=== PATIENT | female | born 1990 | race Two or more races ===

== ENCOUNTER 2024-07-18 13:51 | Outpatient (CLI) | payer MEDICAID, SELFPAY ==
[2024-07-18 13:56] VITALS: BP 114/58; PULSE 96
[2024-07-18 13:57] VITALS: BP 114/58; PULSE 96; RESP 18; RESP 99; TEMP 36.7; BMI 42.7
--- NOTE | 2024-07-18 14:33 | XR_ITS ---
Examination: Biophysical profile, ultrasound Date and time of exam: July 18, 2023 1454 hours INDICATIONS: Diagnosis small for gestational age Technique: Multiple transabdominal sonographic images of the pelvis abdomen obtained. Attention is directed to the breathing movement, gross body movement, amniotic fluid volume and tone. Findings: Amniotic fluid index 12.8 cm Total biophysical profile is 8 of 8. breathing movement is 2. Gross body movement is 2. tone is 2. Qualitative amniotic fluid volume is 2 Impression: Biophysical profile is 8 of 8.
== END 2024-07-18 15:45 | disposition home or self-care (01) ==
LOC: S4S1 13:52 → S4SX 13:52
PROVIDERS: Referring Provider Student in an Organized Health Care Education/Training Program; Visit Provider Student in an Organized Health Care Education/Training Program
DX: O36.5930 Maternal care for other known or suspected poor fetal growth, third trimester, not applicable or unspecified (principal); Z3A.36 36 weeks gestation of pregnancy
CPT/HCPCS: 59025; 76819

== ENCOUNTER 2024-07-21 14:52 | Outpatient (RCR) | payer MEDICAID, SELFPAY ==
--- NOTE | 2024-07-21 15:07 | XR_ITS ---
Examination: Biophysical profile, ultrasound Date and time of exam: July 21, 2024 5011 hours INDICATIONS: Diagnosis poor growth, diagnosis small for gestational age Technique: Multiple transabdominal sonographic images of the pelvis abdomen obtained. Attention is directed to the breathing movement, gross body movement, amniotic fluid volume and tone. Findings: Amniotic fluid index 14.8 cm Total biophysical profile is 8 of 8. breathing movement is 2. Gross body movement is 2. tone is 2. Qualitative amniotic fluid volume is 2 Impression: Biophysical profile is 8 of 8.
[2024-07-21 16:15] VITALS: BP 132/75; PULSE 100; RESP 16; TEMP 37
== END 2024-07-21 23:59 | disposition home or self-care (01) ==
LOC: S4S1 14:52
PROVIDERS: PCP Family Medicine; Referring Provider Student in an Organized Health Care Education/Training Program; Visit Provider Student in an Organized Health Care Education/Training Program
DX: O36.5930 Maternal care for other known or suspected poor fetal growth, third trimester, not applicable or unspecified (principal); Z3A.36 36 weeks gestation of pregnancy
CPT/HCPCS: 59025; 76819

== ENCOUNTER 2024-07-25 10:45 | Inpatient (IN) | payer MEDICAID, SELFPAY ==
[2024-07-25] VITALS (35 sets, daily range): BP systolic 95–123; BP diastolic 55–79; PULSE 65–91; RESP 14–20; TEMP 36.3–36.6; O2SAT 91–100; BMI 42.7
[2024-07-25] MEDS: RINGERS LACTATED 1000 ML 1,000 ML 999 ML IV (11:00)
[2024-07-25 11:20] LABS: Basophils % (Auto) 0 % (0-2.5); Eosinophils % (Auto) 1 % (0-10); Hemoglobin 12.1 g/dL (12.0-16.0); Immature Granulocytes % (Auto) 1 % (0-0); Immature Granulocytes Auto 0.05 Thou/mm3 (0.00-0.00); Lymphocytes # (Auto) 1.2 Thou/mm3 (1.0-4.8); Lymphocytes % (Auto) 17 % (10-50); Mean Corpuscular HGB Conc 34.6 g/dl (31.0-37.0); Mean Corpuscular Hemoglobin 30.1 pg (25.0-35.0); Mean Corpuscular Volume 87 fL (80-100); Monocytes # (Auto) 0.4 Thou/mm3 (0.0-0.8); Monocytes % (Auto) 5 % (0-12); Neutrophils # (Auto) 5.6 Thou/mm3 (1.8-7.7); Neutrophils % (Auto) 77 % (37-80); Nucleated Red Blood Cell % 0 /100 WBC (0); Platelet Count 212 Thou/mm3 (140-440); RDW Standard Deviation 44.6 fL (36.4-46.3); Red Blood Count 4.02 Miln/mm3 (4.00-5.20); White Blood Count 7.3 Thou/mm3 (3.6-11.0)
[2024-07-25 11:58] LABS: Syphilis Nonreactive (Nonreactive)
[2024-07-25] MEDS: FAMOTIDINE INJ 10 MG/ML VIAL 2 ML 20 MG IV (12:04)
[2024-07-25] MEDS: METOCLOPRAMIDE INJ 5 MG/ML VIAL 2 ML IVP (12:04)
[2024-07-25] MEDS: CITRIC ACID/SODIUM CITR 15 ML UDC (BICITRA) 30 ML PO (12:04)
[2024-07-25] MEDS: ceFAZolin/D5W 2 GM IV 2 GM/100 ML BAG IV (12:05)
[2024-07-25] MEDS: RINGERS LACTATED 1000 ML 1,000 ML 100 ML IV (12:15)
--- NOTE | 2024-07-25 13:04 | PD.LDHP ---
Documentation for date of: 07/25/24 OB Labor/Induct. HPI History of Present Illness : 4 History of sections: No History of present illness: 33 y/o @37w0d, per Firts trimester is here for repeat Csection . Candelaria had previous Cection x1. Current affected by IUGR <3%, Denied any contraction , laeking bleeding , can feel baby move appropriate History of Present Dating criteria: LMP confirmed by 1st trimester US Adequate Care: Yes Past Medical History Surgical History SURGICAL: Negative Section Meds Home Medications and Allergies Home Medications ?Medication ?Instructions ?Recorded ?Confirmed ?Type no.58-iron bisglycinate 1 cap PO 1XD 07/25/24 07/25/24 History 10 mg iron-folic acid 400 mcg capsule Allergies Allergy/AdvReac Type Severity Reaction Status Date / Time acetaminophen Allergy Mild top lip Verified 07/25/24 12:16 [From Excedrin Migraine] swelled. aspirin Allergy Verified 07/25/24 12:16 [From Excedrin Migraine] caffeine Allergy Verified 07/25/24 12:16 [From Excedrin Migraine] OB Exam Physical Exam Vital signs: Pulse BP Pulse Ox 81 117/68 96 07/25/24 11:00 07/25/24 11:00 07/25/24 13:01 Constitutional Constitutional: no acute distress Routine HEENT Exam Head: Present normocephalic and atraumatic Eye: Present EOMI and PERRL ENT: Present mucous membranes moist Routine Neck Exam Neck: Present supple and trachea midline Routine Cardiovascular Exam Cardiovascular: Present RRR Routine Abdominal Exam Abdominal: Present soft and normoactive bowel sounds Routine Extremities Exam Extremities: Present full ROM Routine Skin Exam Skin: Present intact, dry and warm Routine Neurological Exam Neurological: Present alert, oriented X3 and CN II-XII intact Routine Psychiatric Exam Psychiatric: Present normal affect and normal thought process OB Results Labs 07/25/24 10:55 Labs: Short CBC 07/25/24 Range/Units 10:55 WBC 7.3 (3.6-11.0) Thou/mm3 Hgb 12.1 (12.0-16.0) g/dL Hct 35.0 L (36.0-46.0) % Plt Count 212 (140-440) Thou/mm3 Impressions Impression: 33 y/o @ 37 W, Here for repeat Csection VSS Hb 12.1 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
--- NOTE | 2024-07-25 14:03 | PD.LDDELS ---
Data ([facility]) Data Hx Section: No : 4 Para: 1 Term: 1 : 0 : 2 Delivery Data ([facility]) Labor Data ROM Date: 07/25/24 ROM Time: 13:34 Rupture Type: AROM Delivery Data Labor Onset Stage 1 Date: 07/25/24 Labor Onset Stage 1 Time: 13:35 Labor Onset Stage 2 Date: 07/25/24 Labor Onset Stage 2 Time: 13:35 Delivery Date: 07/25/24 Delivery Time: 13:35 Gestational age (weeks): 37 Placenta Delivery Date: 07/25/24 Placenta Delivery Time: 13:36 Delivered by: Cortney Ramos Delivery nurse: Nora Kelly Other staff at delivery: Nurse Other staff at delivery: Hemalatha Muller Delivery Method Delivery: Delivery Type: Repeat Anesthesia Type Primary Anesthesia: Spinal Placenta Cord Sample: Cord Blood Obtained EBL Estimated blood loss (ml): 300 Umbilical Cord Umbilical Vessels: 3 Nuchal Cord: None Body Cord: None Data ([facility]) Data Infant Gender: Female Identification Band Number: [id number] Weight Grams: 2565 1 Minute Total: 5 5 Minute Total: 9
--- NOTE | 2024-07-25 14:04 | ESOP_ITS ---
Operative Note - MEAT WRAPPER Procedure Date of procedure: 07/25/24 Procedure Performed: Repeat low-transverse Indication: Breech presentation IUGR less than 3rd percentile Dopplers normal Pre-Op diagnosis: Same Post-Op diagnosis: Same, bicornuate uterus Anesthesia type: Spinal Procedure description: Informed consent was obtained and the patient was taken to the operating room.? Identity was confirmed by double identifiers and she was placed on the operating table.The abdomen and perineum were prepped in the usual sterile fashion and a Vernon catheter was placed to continuous drainage.? Sterile drapes were applied.??A Pfannenstiel skin incision was made with a scalpel and carried to the subcutaneous fat up to the rectus fascia.? The rectus fascia was incised on either side of the midline and the incisions were extended bilaterally.? The fascia was gently dissected off the ventral surface of the rectus muscle both superiorly and inferiorly. Carefully a peritioneal window craeted hysterotomy incision made and extended bluntly with finger. Rupture of membranes revealed clear fluid. The baby was found in breech presentation baby delivered via breech extraction . The umbilical cord , was doubly clamped, divided and the was handed over to the waiting team.? placenta delivered by controlled cord traction . The interior of the uterus was now thorougly cleaned of all blood and debris and membranes.? 2 cavities and the uterus verified the? hysterotomy was closed using 0 vicryl suture in double layers. Once the repair was completed the hysterotomy was inspected, was noted to be adequately hemostatic . Muscle oozing stopped by bovie. The rectus fascia was repaired using Vicry 0 in a running fashion.? The subcutaneous layer was now, approximated with 3-0 vicryl in double layers.? All bleeding points were cauterized using the Bovie.?The skin was closed using 4-0 Monocryl in a subcuticular fashion.? The skin was cleaned and a sterile dressing was applied. The patient was now undraped, the abdomen and back were thoroughly cleaned and she was now transferred to the recovery room in a stable Estimated blood loss (ml): 300 Surgical staff Operation Date: 07/25/24 12:45 Case Staff MARKETING UNDERWRITER: Justin Campos RNmental health social worker: Petra Lemus Problem List Completed Was Problem List Reviewed/Reconciled?: Yes
[2024-07-25] MEDS: ONDANSETRON INJ 2 MG/ML INJ 2 ML 4 MG IV (14:52)
[2024-07-25] MEDS: KETOROLAC INJ 30 MG/ML VIAL IVP (16:26)
[2024-07-25 20:58] LABS: Basophils % (Auto) 0 % (0-2.5); Eosinophils % (Auto) 0 % (0-10); Hematocrit 32.9 % (36.0-46.0); Hemoglobin 11.1 g/dL (12.0-16.0); Immature Granulocytes % (Auto) 0 % (0-0); Immature Granulocytes Auto 0.04 Thou/mm3 (0.00-0.00); Lymphocytes % (Auto) 9 % (10-50); Mean Corpuscular HGB Conc 33.7 g/dl (31.0-37.0); Mean Corpuscular Hemoglobin 29.7 pg (25.0-35.0); Mean Corpuscular Volume 88 fL (80-100); Monocytes # (Auto) 0.5 Thou/mm3 (0.0-0.8); Monocytes % (Auto) 5 % (0-12); Neutrophils # (Auto) 8.9 Thou/mm3 (1.8-7.7); Neutrophils % (Auto) 85 % (37-80); Nucleated Red Blood Cell % 0 /100 WBC (0); Platelet Count 180 Thou/mm3 (140-440); RDW Standard Deviation 45.2 fL (36.4-46.3); Red Blood Count 3.74 Miln/mm3 (4.00-5.20); White Blood Count 10.4 Thou/mm3 (3.6-11.0)
[2024-07-25] MEDS: OXYTOCIN in NS 20 UNIT/1,000 ML BAG IV (22:07)
[2024-07-26 01:31] VITALS: BP 91/53; PULSE 71; RESP 16; TEMP 36.8; O2SAT 96
[2024-07-26] MEDS: KETOROLAC INJ 30 MG/ML VIAL IVP ×2 (01:36→12:16)
[2024-07-26 05:00] VITALS: BP 82/53; PULSE 80; RESP 20; TEMP 36.9; O2SAT 95
[2024-07-26 08:00] VITALS: BP 101/67; PULSE 80; RESP 16; TEMP 36.7; O2SAT 96
[2024-07-26 12:10] VITALS: BP 99/69; PULSE 74; RESP 17; TEMP 36.6; O2SAT 96
--- NOTE | 2024-07-26 13:01 | ESPR_ITS ---
Subjective Subjective Interval history: Patient is doing well is breast pumping at bedside baby is admitted in NICU for observation denies any fever, vaginal bleeding. Has passed gas Exam Vital Signs Temp Pulse Resp BP Pulse Ox O2 Del Method 98 F 74 17 99/69 96 Room Air 07/26/24 12:10 07/26/24 12:10 07/26/24 12:10 07/26/24 12:10 07/26/24 12:10 07/26/24 12:10 Constitutional Constitutional: no acute distress Routine HEENT Exam Head: Present normocephalic and atraumatic Eye: Present EOMI and PERRL ENT: Present mucous membranes moist Routine Neck Exam Neck: Present supple and trachea midline Routine Respiratory Exam Respiratory: Present chest non-tender, lungs clear, normal breath sounds and no resp distress Routine Cardiovascular Exam Cardiovascular: Present RRR Routine Abdominal Exam Abdominal: Present soft and normoactive bowel sounds Routine Extremities Exam Extremities: Present full ROM Routine Skin Exam Skin: Present intact, dry and warm Routine Neurological Exam Neurological: Present alert, oriented X3 and CN II-XII intact Routine Psychiatric Exam Psychiatric: Present normal affect and normal thought process Objective Labs 07/25/24 20:05 Labs: Laboratory Results - last 24 hr 07/25/24 20:05 WBC 10.4 D RBC 3.74 L Hgb 11.1 L Hct 32.9 L MCV 88 MCH 29.7 MCHC 33.7 RDW Std Deviation 45.2 Plt Count 180 D Neut % (Auto) 85 H Lymph % (Auto) 9 L [place] % (Auto) 5 Eos % (Auto) 0 Baso % (Auto) 0 Neut # (Auto) 8.9 H Lymph # (Auto) 1.0 [place] # (Auto) 0.5 Eos # (Auto) 0.0 Baso # (Auto) 0.0 Immature Gran # (Auto) 0.04 H Absolute Nucleated RBC 0.00 Immature Gran % 0 Nucleated RBC % 0 Assessment & Plan Assessment Comment Assessment comment: 33-year-old s/p repeat low-transverse , postop day 1 Vital signs stable Hemoglobin appropriate drop Meeting all postop milestones Plan Comment Plan Comment: Anticipate discharge tomorrow Continue care Time Spent With Patient Time: Total time spent is greater than 50% in coordination of care (as documented) at patient's floor/unit and/or counseling patient:
[2024-07-26 16:40] VITALS: BP 100/60; PULSE 73; RESP 16; TEMP 36.8; O2SAT 98
[2024-07-26 19:34] VITALS: BP 95/65; PULSE 81; RESP 18; TEMP 36.6; O2SAT 98
[2024-07-26] MEDS: HYDROcodone/APAP 5/325 TABLET 2 TAB PO (23:15)
--- NOTE | 2024-07-26 23:16 | PC.NURSE ---
2318 Patient has a known Excedrin allergy, and is 10/10 pain and has [place] available for 9/10 pain. Verified with pt about acetaminophen allergy and she stated she has had Tylenol in the past two weeks with no reactions.Offered Ibuprofen and/or [place] for pain but she chose [place].
[2024-07-27 03:36] VITALS: BP 102/69; PULSE 75; RESP 19; TEMP 37; O2SAT 97
[2024-07-27 07:28] VITALS: BP 102/71; PULSE 87; RESP 20; TEMP 36.8; O2SAT 98
[2024-07-27] MEDS: HYDROcodone/APAP 5/325 TABLET 2 TAB PO (07:28)
--- NOTE | 2024-07-27 07:35 | PC.LAC ---
Mom states that she only pumped one time overnight. stated was very tired and didn't wake up to pump. she was going to pump this am right after breakfast. stated she was still only getting drops. sounded discouraged, explained that the more stimulation/pumping that she did the more milk she would have. explained that without baby to do the job she needed to stay on a program of at least every 2-3 hours for 20- 30 minutes double pumping. also encouraged her to hand massage for stimulation.
--- NOTE | 2024-07-27 08:46 | ESDS_ITS ---
DS: Providers Provider Date of admission: 07/25/24 10:45 Primary care physician: Physician No Primary/Family Admitting Provider: Cortney Ramos MD Attending Provider on Admission: Cortney Ramos MD Consults: 07/25/24 13:20 Referral Routine Comment: Attending Provider on DC: Lesia Pacheco MD Discharging Provider: Lesia Pacheco MD DS: Diagnosis Discharge Diagnosis (1) Bicornuate uterus: Status: Acute (2) delivery delivered: Status: Acute (3) Breech presentation: Status: Acute (4) Intrauterine growth restriction (IUGR) affecting care of mother: Status: Acute (5) History of section: Status: Acute Problem List Completed Was Problem List Reviewed/Reconciled?: Yes Summary/Hosp Course Brief History: Alyse is a 33 y/o [id number] who presented for scheduled repeat at 37w0d (by first trimester ultrasound). Patient had previous x1. was affected by IUGR <3%. section was uncomplicated with appropriate change in H/H afterward (11.1 from 12.1). She has had a benign postoperative/ course. She is hemodynamically stable with no evidence of infection and pain is well controlled. Normal vitals, benign exam. Meeting all milestones and desires discharge home. Peripartum Data Delivery Method: Low Transverse Procedures: Procedures Operation Date: 07/25/24 12:45 Actual Procedure Side Surgeon p in OB Not Applicable Cortney Ramos MD complications: none Status at Discharge Functional status at discharge: independent ambulation Overall status at discharge: patient is back to baseline Time Spent with Patient Time attestation: Total time spent providing and/or coordinating discharge services: Time spent: Less than 30 minutes Exam Vital Signs Temp Pulse Resp BP Pulse Ox O2 Del Method 98.3 F 87 20 102/71 98 Room Air 07/27/24 07:28 07/27/24 07:28 07/27/24 07:28 07/27/24 07:28 07/27/24 07:28 07/27/24 07:28 Narrative Exam General: well developed, well nourished, no acute distress, conversant Cardiac: normal heart rate Lungs: breathing without distress Abdomen: soft, post-gravid, non-tender, no rebound or guarding, pfannenstiel incision covered by dry/clean/intact prineo bandage. Incision well reapproximated. No erythema, drainage or induration. Extremities: no pain with palpation of calves, trace edema of BLE Discharge Plan Plan Patient Disposition: HOME (Self Care) Patient condition on transfer: Stable Prescriptions/Referrals Prescriptions/Med Rec: New hydrocodone-acetaminophen 5-325 mg Tablet 1 tab PO Q6HR MDD 4 tablets PRN (Reason: Patient rated pain 9 to 10) 10 Days Qty: 20 0RF ibuprofen 400 mg Tablet 800 mg PO Q8H PRN (Reason: See Comments) 10 Days Qty: 30 0RF polyethylene glycol 3350 [Miralax] 17 gram powder in packet 17 g PO QDAY Qty: 14 0RF Continued PNV comb no.58-iron bisgly-FA 10-400 mg-mcg Capsule 1 cap PO 1XD Referrals: No Primary/Family,Physician [Primary Care Provider] - Patient/Caregiver Discharge Instructions Discharge Activity: activity as tolerated and other Other Discharge Activity Instructions:: Vaginal rest and no heavy lifting greater than 10 pounds for 6 weeks, no driving while taking narcotic Other Discharge Diet Instructions: regular diet Education Materials: Nutrition While , : Caring for Yourself, C Section Dc Print Language: Indonesian Activity Restrictions/Additional Instructions: Keep incision clean and dry, do not submerge. Stand Alone Forms: [facility] Award Info., Patient Portal Info Letter Discharge Order Discharge Orders: Discharge (Routine); Ordered 07/27/24 Ordered By: Lesia Pacheco Planned Discharge Date 07/27/24 (3) Breech presentation Qualifiers: Fetus number: single or unspecified fetus Qualified Code(s): O32.1XX0 - Maternal care for breech presentation, not applicable or unspecified (4) Intrauterine growth restriction (IUGR) affecting care of mother Qualifiers: Fetus number: single or unspecified fetus Trimester: third trimester Qualified Code(s): O36.5930 - Maternal care for other known or suspected poor growth, third trimester, not applicable or unspecified
[2024-07-27 12:07] VITALS: BP 104/77; PULSE 88; RESP 18; TEMP 37; O2SAT 97
== END 2024-07-27 15:42 | disposition home or self-care (01) | DRG 540 ==
LOC: S4SX 13:22 → S4NX 13:54
PROVIDERS: Admitting Provider Student in an Organized Health Care Education/Training Program; Visit Provider Student in an Organized Health Care Education/Training Program
PROC: 10D00Z1 Extraction of Products of Conception, Low, Open Approach (ICD-10-PCS; CPT 59514; principal; 2024-07-25 12:30)
DX: O34.211 Maternal care for low transverse scar from previous cesarean delivery (principal); O34.03 Maternal care for unspecified congenital malformation of uterus, third trimester; O32.1XX0 Maternal care for breech presentation, not applicable or unspecified; O36.5930 Maternal care for other known or suspected poor fetal growth, third trimester, not applicable or unspecified; Z37.0 Single live birth; Q51.3 Bicornate uterus; Z3A.37 37 weeks gestation of pregnancy; Z88.6 Allergy status to analgesic agent
CPT/HCPCS: 36415; 85025; 86780; 86850; 86900; 86901; A4649; J0689; J1885; J2274; J2405; J2590; J2765; J3490; J7120; A9270; J1596; J2270